=== PATIENT | male | born 1980 | race Caucasian/White ===

== ENCOUNTER 2017-03-10 08:21 | Day surgery (SDC) | payer BC ==
[~2017-03-10 08:21] MED LIST: Midazolam 1 MG/ML 2 ML SDV ONE; Propofol 200 MG/20 ML SDV ONE; fentaNYL 100 MCG/2 ML SDV ONE
[2017-03-10] MEDS ORDERED: Dextrose 5%-Lactated Ringers 1,000 ML IV SCH (08:45)
--- NOTE | 2017-03-12 15:04 | OR ---
DATE OF PROCEDURE: 03/10/2017 PREOPERATIVE DIAGNOSIS: Chronic diarrhea/frequent loose bowel movements. POSTOPERATIVE DIAGNOSIS: Chronic diarrhea/frequent loose bowel movements with normal colonoscopic exam. OPERATIVE PROCEDURES: Flexible colonoscopy with: 1. Aspiration of stool for a full microbiologic workup. 2. Random colorectal biopsies to rule out microscopic colitis. ANESTHESIA: IV sedation. INDICATION FOR PROCEDURE: A 36-year-old presenting with some progressively worsening frequent loose bowel movements or diarrhea. The plan is to proceed with a flexible colonoscopy with biopsies as indicated. We will also likely obtain any residual stool for cultures. Potential risks of the procedure including bleeding and perforation were discussed, and the patient wishes to proceed. DETAILS OF PROCEDURE: The patient was taken to the operating room and placed in a left lateral decubitus position. IV sedation was administered after which the initial digital rectal exam was performed and was unremarkable. Colonoscope was then passed into the rectum with retroflexion revealing uncomplicated hemorrhoidal columns. The scope was eventually passed to the level of cecum. The prep was fairly good. There was some liquid stool which was able to be evacuated and sent for a full microbiologic workup. Otherwise, there were no gross abnormalities on fluoroscopic examination. There was no diverticula, no areas of colitis, and no polyps or signs of neoplasia. Multiple biopsies were then obtained randomly beginning in the cecum and then throughout the length of the colon and rectum and sent for histologic evaluation to rule out microscopic colitis. The procedure concluded. The patient was taken to the recovery room in satisfactory condition. The patient at this point along with his would like to be referred for Gastroenterology consult. This will be set up with Omar Sun CNP with the [facility]. Lei Dennis MD /[id number]
== END 2017-03-10 12:47 | disposition home or self-care (01) ==
LOC: JP.SDS 08:21
PROVIDERS: ATTEND Surgery
DX: K52.9 Noninfective gastroenteritis and colitis, unspecified (principal)
CPT/HCPCS: 45380; 87046; 87177; 87209; 87493; 87899; 88305; J2250; J2704; J3010; J7042

== ENCOUNTER 2020-11-27 11:25 | Emergency (ER) | payer BC ==
--- NOTE | 2020-11-27 12:54 | EDM.PDOC ---
ED HPI GENERAL MEDICAL PROBLEM - General Chief Complaint: Gastrointestinal Problem Stated Complaint: BLEEDING FROM GROIN Time Seen by Provider: 11/27/20 12:20 Source of Information: Reports: Patient History Limitations: Reports: No Limitations - History of Present Illness INITIAL COMMENTS - FREE TEXT/NARRATIVE: 40-year-old male with a history of irritable bowel syndrome, and a past history of upper GI and lower GI scoping's 8 years ago presents with 4 hours of acute rectal bleeding after a bowel movement. He has no pain, no symptoms, no abdominal cramping, fevers or chills or nausea or vomiting. He has not had this happen to him before. He is not on anticoagulants. Onset: Sudden Duration: Hour(s): (4 hours, seems to be improving or slowing down) Associated Symptoms: Reports: No Other Symptoms - Related Data Allergies Allergy/AdvReac Type Severity Reaction Status Date / Time No Known Allergies Allergy Verified 11/27/20 11:54 Home Meds: Home Meds Cholestyramine (With Sugar) [Questran Powder] 1 packet PO DAILY PRN 03/06/17 [History] Glucosam/Chond-MSM 2/C/D3/Macho [Xyuxgsjade-Dhwaexpkdou-EDF] 1 tab PO DAILY 03/10/17 [History] Multivitamin [Multivitamins] 1 tab PO DAILY 03/10/17 [History] Past Medical History HEENT History: Reports: Impaired Vision Other HEENT History: wears glasses Gastrointestinal History: Reports: Chronic Diarrhea Musculoskeletal History: Reports: None Dermatologic History: Reports: Seborrheic Dermatitis - Infectious Disease History Infectious Disease History: Reports: Chicken Pox - Past Surgical History GI Surgical History: Reports: Hernia, Inguinal Musculoskeletal Surgical History: Reports: Ganglion Cyst Dermatological Surgical History: Reports: Skin Biopsy, Other (See Below) Social & Family History - Family History Family Medical History: No Pertinent Family History - Tobacco Use Tobacco Use Status *Q: Current Every Day Tobacco User Years of Tobacco use: 16 Packs/Tins Daily: 1 Second Hand Smoke Exposure: No - Caffeine Use Caffeine Use: Reports: Coffee Other Caffeine Use: 1 pot a day - Alcohol Use Days Per Week of Alcohol Use: 1 Number of Drinks Per Day: 2 Total Drinks Per Week: 2 - Recreational Drug Use Recreational Drug Use: No ED ROS GENERAL - Review of Systems Review Of Systems: See Below Constitutional: Denies: Fever, Chills HEENT: Reports: No Symptoms Respiratory: Reports: No Symptoms Cardiovascular: Reports: No Symptoms GI/Abdominal: Denies: Abdominal Pain, Nausea, Vomiting : Reports: No Symptoms Skin: Reports: No Symptoms ED EXAM, GI/ABD - Physical Exam Exam: See Below Exam Limited By: No Limitations General Appearance: Alert, No Apparent Distress Eyes: Bilateral: Normal Appearance Respiratory/Chest: No Respiratory Distress Cardiovascular: Regular Rate, Rhythm. No: Tachycardia GI/Abdominal Exam: Normal Bowel Sounds, Non-Tender Rectal (Males) Exam: Other (There is recent blood at the anal opening, a small irritated hemorrhoid at 12:00 but on digital exam there is no rectal masses or other abnormality, no stool.) Course - Vital Signs Last Recorded V/S: Last Vital Signs Temp 98.4 F 11/27/20 11:58 Pulse 75 11/27/20 11:58 Resp 14 11/27/20 11:58 BP 130/80 11/27/20 11:58 Pulse Ox 98 11/27/20 11:58 - Orders/Labs/Meds Labs: Laboratory Tests 11/27/20 Range/Units 12:49 WBC 6.6 (4.5-11.0) K/uL RBC 4.54 (4.30-5.90) M/uL Hgb 14.6 (12.0-15.0) g/dL Hct 42.5 (40.0-54.0) % MCV 94 (80-98) fL MCH 32 H (27-31) pg MCHC 34 (32-36) % Plt Count 269 (150-400) K/uL Neut % (Auto) 63.2 (36-66) % Lymph % (Auto) 28.4 (24-44) % Holmes % (Auto) 7.0 H (2-6) % Eos % (Auto) 1.2 L (2-4) % Baso % (Auto) 0.2 (0-1) % - Re-Assessments/Exams Free Text/Narrative Re-Assessment/Exam: 11/27/20 12:52 This is fairly a straightforward bleeding hemorrhoid at the rectal opening. He was given Anusol HC suppositories to use up to twice daily, and a baseline CBC drawn. If this continues to be a recurring issue, a rectal sigmoidoscopy may be worthwhile. If it worsens he can return sooner. Important to keep stool soft to avoid further irritation. 11/27/20 15:08 CBC was normal. Departure - Departure Time of Disposition: 13:01 Disposition: Home, Self-Care 01 Clinical Impression: Rectal bleed, Bleeding hemorrhoids - Discharge Information Instructions: Hemorrhoids, [id number] Referrals: Al Townsend MD [Primary Care Provider] - Forms: ED Department Discharge Care Plan Goals: Try suppositories up to twice daily for persistent symptoms, return anytime if bleeding is heavier or concerning, or you develop lightheaded feelings or other concerns. Sepsis Event Note (ED) - Evaluation Sepsis Screening Result: No Definite Risk - Focused Exam Vital Signs: Vital Signs Temp Pulse Resp BP Pulse Ox 11/27/20 11:58 98.4 F 75 14 130/80 98 11/27/20 11:39 98.4 F 75 14 130/80 98
== END 2020-11-27 13:01 | disposition home or self-care (01) ==
LOC: JP.ED 11:25
DX: K62.5 Hemorrhage of anus and rectum (principal)
CPT/HCPCS: 36415; 85025; 99283